=== PATIENT | female | born 1960 | race Caucasian/White ===

== ENCOUNTER 2018-08-23 09:48 | Outpatient (CLI) | payer BC ==
--- NOTE | 2018-08-23 10:41 | BD ---
DEXA BONE DENSITY EXAM: COMPARISON: None. HISTORY: A 57-year-old postmenopausal female for screening. FINDINGS: Lumbar Spine: BMD (g/cm2) L1 0.892 T-Score: -0.9 L2 1.056 T-Score: 0.3 L3 0.963 T-Score: -1.1 L4 0.927 T-Score: -1.2 L1-L4 0.959 T-Score: -0.8 Femoral Neck: 0.657 T-Score: -1.7 Total Femur: 0.872 T-Score: -0.6 Impression: Osteopenia. This patient has a 10-year WHO fracture risk of a major osteoporotic fracture of 8.7% an d of a hip fracture 0.9%. POS: [facility]
== END 2018-08-23 09:49 | disposition home or self-care (01) ==
LOC: BICMAMMO 09:48
PROVIDERS: ATTEND Physician Assistant
DX: M81.0 Age-related osteoporosis without current pathological fracture (principal); M85.89 Other specified disorders of bone density and structure, multiple sites
CPT/HCPCS: 77080

== ENCOUNTER 2021-09-14 09:56 | Outpatient (CLI) | payer BC | END 2021-09-14 09:57 | disposition home or self-care (01) | LOC: BICMRI 09:56 | PROVIDERS: ATTEND Orthopaedic Surgery | DX: M75.111 Incomplete rotator cuff tear or rupture of right shoulder, not specified as traumatic (principal) ==

== ENCOUNTER 2025-01-09 14:52 | Outpatient (CLI) | payer MEDICARE | END 2025-01-09 14:53 | disposition home or self-care (01) | LOC: BICMAMMO 14:52 | PROVIDERS: ATTEND Nurse Practitioner Family | DX: Z12.31 Encounter for screening mammogram for malignant neoplasm of breast (principal); Z85.828 Personal history of other malignant neoplasm of skin | CPT/HCPCS: 77063; 77067 ==